=== PATIENT | male | born 1950 | race African-American/Black ===

== ENCOUNTER → 2017-06-06 | Outpatient (CLI) | payer MEDICARE, OTHER ==
[~2017-06-06] MED LIST: AMLO-512 PO; ATEN50TA PO; ATOR20TA86 PO; HYDR25TA PO; TAMS0.4C32 PO; [UNRECOGNIZED DRUG - CODE] MC
== END | disposition home or self-care (01) ==
LOC: RADPV 09:04
PROVIDERS: ATTEND Internal Medicine
DX: R07.9 Chest pain, unspecified (principal); R06.00 Dyspnea, unspecified; I70.0 Atherosclerosis of aorta
CPT/HCPCS: 71046

== ENCOUNTER → 2018-10-22 | Outpatient (CLI) | payer MEDICARE, OTHER ==
[~2018-10-22] MED LIST changes: -AMLO-512 PO; +AMLO10TA7 PO
== END | disposition home or self-care (01) ==
LOC: RADPV 10:46
PROVIDERS: ATTEND Internal Medicine
DX: M47.896 Other spondylosis, lumbar region (principal)
CPT/HCPCS: 72100